=== PATIENT | male | born 1995 ===

== ENCOUNTER 2017-08-27 15:53 | Emergency (ER) | payer OTHER ==
[2017-08-27 15:57] VITALS: BP 146/86; PULSE 113; RESP 16; TEMP 99.4; O2SAT 98
[2017-08-27] MEDS ORDERED: HALOPERIDOL LACTATE 5 MG/ML AMP IM ONE (16:15)
[2017-08-27] MEDS ORDERED: LORazepam 2 MG/ML VIAL IM ONE (16:15)
[2017-08-27] MEDS ORDERED: CLON1 PO (16:21)
[2017-08-27] MEDS ORDERED: OXYC30TA PO (16:22)
[2017-08-27] MEDS ORDERED: PROZ40CA PO (16:22)
[2017-08-27] MEDS ORDERED: GABA300C5 PO (16:23)
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
[2017-08-27] MEDS ORDERED: oxyCODONE/ACETAMINOPHEN 5 MG/325 MG TAB PO ONE (16:45)
[2017-08-27] MEDS ORDERED: oxyCODONE/ACETAMINOPHEN 10 MG/325 MG TAB PO ONE (16:45)
[2017-08-27] MEDS ORDERED: LORazepam 2 MG TAB PO ONE (16:45)
[2017-08-27] MEDS ORDERED: GABAPENTIN 300 MG CAP PO ONE (16:45)
[2017-08-27 18:54] VITALS: BP 114/56; PULSE 116; RESP 20; O2SAT 96
[2017-08-27 18:59] LABS: BICARBONATE 22.4 MEQ/L (21.0-32.0); BLOOD UREA NITROGEN 28 MG/DL (7-18); CALCIUM 9.5 MG/DL (8.5-10.1); CHLORIDE 101 MEQ/L (98-107); CREATININE 1.26 MG/DL (0.60-1.30); GLOMERULAR FILTRATION RATE 70 ML/MIN (>89); GLUCOSE,RANDOM 89 MG/DL (74-106); SODIUM (NA) 135 MEQ/L (136-145)
[2017-08-27 19:00] LABS: AUTOMATED NEUTROPHIL # 14.2 TH/MM3 (1.8-7.7); BASOPHIL % 0.3 % (0.0-2.0); HEMATOCRIT 40.3 % (39.0-51.0); HEMOGLOBIN 13.8 GM/DL (13.0-17.0); LYMPH % 8.7 % (9.0-44.0); LYMPHOCYTE # 1.5 TH/MM3 (1.0-4.8); MEAN CELL VOLUME 83.9 FL (80.0-100.0); MEAN CORPUSCULAR HEMOGLOBIN 28.8 PG (27.0-34.0); MEAN CORPUSCULAR HGB CONC 34.3 % (32.0-36.0); MEAN PLATELET VOLUME 8.9 FL (7.0-11.0); MONO % 7.4 % (0.0-8.0); MONOCYTE # 1.3 TH/MM3 (0-0.9); NEUT % 83.6 % (16.0-70.0); PLATELET COUNT 265 TH/MM3 (150-450); RED BLOOD COUNT 4.81 MIL/MM3 (4.50-5.90); RED CELL DISTRIBUTION WIDTH 13.9 % (11.6-17.2)
[2017-08-27] MEDS ORDERED: OLANZapine ODT 10 MG TAB PO ONE (21:45)
[2017-08-28 00:51] VITALS: BP 93/54; PULSE 92; RESP 18; O2SAT 99
[2017-08-28 07:00] VITALS: BP 119/59; PULSE 93; RESP 18; O2SAT 99
[2017-08-28] MEDS ORDERED: ONDANSETRON ODT 4 MG TAB PO ONE (11:30)
[2017-08-28 14:00] VITALS: BP 130/59; PULSE 94; RESP 20
[2017-08-28] MEDS ORDERED: oxyCODONE/ACETAMINOPHEN 10 MG/325 MG TAB PO ONE (18:00)
[2017-08-28 18:15] VITALS: BP 143/64; PULSE 92; RESP 20
[2017-08-28] MEDS ORDERED: IBUPROFEN 800 MG TAB PO ONE (21:30)
--- NOTE | 2017-08-28 22:50 | RADRPT ---
EXAM DATE/TIME: 08/28/2017 21:34 [place] COMPARISON: No previous studies available for comparison. INDICATIONS : Right elbow pain after fall. MEDICAL HISTORY : Arthritis. Right elbow fractures. SURGICAL HISTORY : Radial head removed. ENCOUNTER: Initial ACUITY: 2 days PAIN SCORE: 10/10 LOCATION: Right elbow. FINDINGS: Multiple views of the right elbow were obtained and demonstrate remote postsurgical changes status po st removal of the radial head and neck. Degenerative changes are noted in the ulnar trochlear joint w ith joint space loss, sclerosis and hypertrophic change. There is no acute fracture or malalignment. The distal humerus is intact. There is mild soft tissue prominence. CONCLUSION: 1. No acute fracture or malalignment. 2. Remote postsurgical changes status post removal of the radial head and neck. 3. 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 Mitchell Cintron MD on August 28, 2017 at 22:48 Board Certified Radiologist. This report was verified electronically.
[2017-08-29 02:24] VITALS: BP 121/57; PULSE 82; RESP 17; O2SAT 100
[2017-08-29 06:55] VITALS: BP 131/69; PULSE 51; RESP 18; O2SAT 99
[2017-08-29 10:16] VITALS: BP 129/62; PULSE 86; RESP 16; O2SAT 99
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
--- NOTE | 2017-08-29 13:37 | PD ---
Physical Exam Time Seen by Provider: 13:35 MAXIME Bravo has evaluated patient, lifted the Willis act and cleared the patient for discharge. Data Data Last Documented VS Vital Signs Date Time Temp Pulse Resp B/P (MAP) Pulse Ox O2 Delivery O2 Flow Rate FiO2 08/29/17 10:16 86 16 129/62 (84) 99 Room Air 08/27/17 15:57 99.4 Orders Orders Complete Blood Count With Diff (08/27/17 16:01) Thyroid Stimulating Hormone (08/27/17 16:01) Basic Metabolic Panel (Bmp) (08/27/17 16:01) Psych Screen (08/27/17 16:01) Drug Screen, Random Urine (08/27/17 16:01) Alcohol (Ethanol) (08/27/17 16:01) Lorazepam Inj (Ativan Inj) (08/27/17 16:15) Haloperidol Inj (Haldol Inj) (08/27/17 16:15) Lorazepam (Ativan) (08/27/17 16:45) Oxycodone-Acetamin 5-325 Mg (Percocet (08/27/17 16:45) Gabapentin (Neurontin) (08/27/17 16:45) Oxycodone-Acetamin 10-325 Mg (Percocet 1 (08/27/17 16:45) Diet Regular Basic (08/27/17 Dinner) Olanzapine Odt (Zyprexa Zydis Odt) (08/27/17 21:45) Diet Regular Basic (08/28/17 Breakfast) Diet Regular Basic (08/28/17 Lunch) Ondansetron Odt (Zofran Odt) (08/28/17 11:30) Diet Regular Basic (08/28/17 Dinner) Oxycodone-Acetamin 10-325 Mg (Percocet 1 (08/28/17 18:00) Ibuprofen (Motrin) (08/28/17 21:30) Elbow, Complete (4 Vws) (08/28/17 21:28) Ice/Cold Pack (08/28/17 21:28) Diet Regular Basic (08/29/17 Breakfast) Diet Regular Basic (08/29/17 Lunch) Ed Discharge Order (08/29/17 13:38) Labs Laboratory Tests Test 08/27/17 17:24 08/27/17 18:10 Urine Opiates Screen NEG Urine Barbiturates Screen NEG Urine Amphetamines Screen NEG Urine Benzodiazepines Screen NEG Urine Cocaine Screen NEG Urine Cannabinoids Screen POS White Blood Count 17.0 TH/MM3 Red Blood Count 4.81 MIL/MM3 Hemoglobin 13.8 GM/DL Hematocrit 40.3 % Mean Corpuscular Volume 83.9 FL Mean Corpuscular Hemoglobin 28.8 PG Mean Corpuscular Hemoglobin Concent 34.3 % Red Cell Distribution Width 13.9 % Platelet Count 265 TH/MM3 Mean Platelet Volume 8.9 FL Neutrophils (%) (Auto) 83.6 % Lymphocytes (%) (Auto) 8.7 % Monocytes (%) (Auto) 7.4 % Eosinophils (%) (Auto) 0.0 % Basophils (%) (Auto) 0.3 % Neutrophils # (Auto) 14.2 TH/MM3 Lymphocytes # (Auto) 1.5 TH/MM3 Monocytes # (Auto) 1.3 TH/MM3 Eosinophils # (Auto) 0.0 TH/MM3 Basophils # (Auto) 0.0 TH/MM3 CBC Comment DIFF FINAL Differential Comment Blood Urea Nitrogen 28 MG/DL Creatinine 1.26 MG/DL Random Glucose 89 MG/DL Calcium Level 9.5 MG/DL Sodium Level 135 MEQ/L Potassium Level 4.0 MEQ/L Chloride Level 101 MEQ/L Carbon Dioxide Level 22.4 MEQ/L Anion Gap 12 MEQ/L Estimat Glomerular Filtration Rate 70 ML/MIN Thyroid Stimulating Hormone 3rd Gen 0.795 uIU/ML Ethyl Alcohol Level LESS THAN 3 MG/DL MDM Supervised Visit with [facility]: No Narrative Course MAXIME Jensen has evaluated patient, lifted the Willis act and cleared the patient for discharge. The mother is coming to pick the patient up. Patient contracts safety. Denies suicidal or homicidal ideations. Patient will be provided community resource packet to [facility] for follow-up. Has friends and family for support. Patient was medically cleared by alternate provider prior to psych screening. Patient has been evaluated by psychiatry and and is now cleared for discharge. Diagnosis Primary Impression: Substance-induced psychotic disorder Referrals: [facility] (Out patient) [facility] Primary Care Physician Psychiatrist Dima [facility] Patient Instructions: Cannabis Abuse (ED), General Instructions, Psychotic Disorder (ED) Additional Instruction: Contract safety to your self and others Follow-up with psychiatry Follow-up with primary care provider Follow-up with Abdiel Mcfarland/[facility] Return to the emergency department immediately with worsening of symptoms Med/Other Pt SpecificInfo: No Change to Meds, No Meds Exist/No RX given Disposition: 01 DISCHARGE HOME Condition: Stable Corrie García Aug 29, 2017 13:37
== END 2017-08-29 15:22 | disposition home or self-care (01) ==
LOC: NEPJ 15:53
DX: F19.159 Other psychoactive substance abuse with psychoactive substance-induced psychotic disorder, unspecified (principal); F12.159 Cannabis abuse with psychotic disorder, unspecified; S50.811A Abrasion of right forearm, initial encounter; F43.10 Post-traumatic stress disorder, unspecified; Z87.891 Personal history of nicotine dependence; Z79.899 Other long term (current) drug therapy
CPT/HCPCS: 73080; 80048; 80307; 84443; 85025; 99284